=== PATIENT | female | born 1995 | race Caucasian/White ===

== ENCOUNTER 2017-05-04 10:54 | Outpatient (CLI) | payer OTHER | END 2017-05-04 12:41 | disposition home or self-care (01) | LOC: OBT 10:54 → L-D 10:54 → OBT 12:41 | DX: O26.852 Spotting complicating pregnancy, second trimester (principal); O26.892 Other specified pregnancy related conditions, second trimester; R10.30 Lower abdominal pain, unspecified; Z3A.22 22 weeks gestation of pregnancy | CPT/HCPCS: 76815; 76816; 76817 ==